=== PATIENT | male | born 1995 | race Asian ===

== ENCOUNTER 2016-10-19 21:32 | Emergency (ER) | payer OTHER ==
[~2016-10-19] VITALS: Ht 170.2 cm; Wt 88.0 kg
== END 2016-10-19 23:45 | disposition home or self-care (01) ==
LOC: ED 21:32
DX: K02.9 Dental caries, unspecified (principal)
CPT/HCPCS: 99282

== ENCOUNTER 2016-11-05 14:35 | Emergency (ER) | payer OTHER ==
[~2016-11-05] VITALS: Ht 162.6 cm; Wt 88.0 kg
== END 2016-11-05 15:00 | disposition home or self-care (01) ==
LOC: ED 14:35
DX: T81.30XA Disruption of wound, unspecified, initial encounter (principal)
CPT/HCPCS: 99282

== ENCOUNTER 2016-11-16 22:59 | Emergency (ER) | payer OTHER ==
[~2016-11-16] VITALS: Ht 170.2 cm; Wt 88.5 kg
== END 2016-11-17 01:12 | disposition home or self-care (01) ==
LOC: ED 22:59
DX: M79.1 Myalgia (principal); M54.5 Low back pain
CPT/HCPCS: 99282

== ENCOUNTER 2017-04-20 15:47 | Outpatient (CLI) | payer OTHER | END 2017-04-20 16:50 | disposition home or self-care (01) | LOC: RAD 15:47 | DX: M25.561 Pain in right knee (principal) ==

== ENCOUNTER 2017-05-04 23:26 | Emergency (ER) | payer OTHER ==
[~2017-05-04] VITALS: Ht 170.2 cm; Wt 88.0 kg
[2017-05-04] MEDS ORDERED: MELOXICAM15 MG PO (23:42)
== END 2017-05-05 00:17 | disposition home or self-care (01) ==
LOC: ED 23:26
DX: M25.561 Pain in right knee (principal)
CPT/HCPCS: 99281

== ENCOUNTER 2017-06-20 20:04 | Emergency (ER) | payer OTHER ==
[~2017-06-20] VITALS: Ht 170.2 cm; Wt 91.6 kg
[~2017-06-20 20:04] MED LIST: MELOXICAM15 MG PO
[2017-06-20] MEDS ORDERED: LISITAB PO (20:13)
== END 2017-06-20 21:15 | disposition home or self-care (01) ==
LOC: ED 20:04
DX: R51 Headache (principal); R10.84 Generalized abdominal pain
CPT/HCPCS: 99282

== ENCOUNTER 2017-08-05 20:18 | Emergency (ER) | payer OTHER ==
[~2017-08-05] VITALS: Ht 170.2 cm; Wt 88.5 kg
[~2017-08-05 20:18] MED LIST changes: +LISITAB PO
== END 2017-08-05 21:40 | disposition home or self-care (01) ==
LOC: ED 20:18
DX: M54.5 Low back pain (principal)
CPT/HCPCS: 96372; 99283; J1885

== ENCOUNTER 2017-11-15 19:27 | Emergency (ER) | payer OTHER ==
[~2017-11-15] VITALS: Ht 170.2 cm; Wt 91.6 kg
[2017-11-15 20:13] LABS: PLATELET COUNT 292 K/uL (142-355)
[2017-11-15 20:28] LABS: POTASSIUM 3.5 mmol/L (3.6-5.2)
[2017-11-15 23:14] VITALS: BP 133/81; TEMP 98.7
== END 2017-11-15 23:17 | disposition home or self-care (01) ==
LOC: ED 19:27
DX: K44.9 Diaphragmatic hernia without obstruction or gangrene (principal); R51 Headache; R10.84 Generalized abdominal pain
CPT/HCPCS: 36415; 80053; 82150; 83690; 85027; 96360; 96372; 99284; J1885; Q9963

== ENCOUNTER 2018-03-05 19:18 | Emergency (ER) | payer OTHER ==
[~2018-03-05] VITALS: Ht 170.2 cm; Wt 83.9 kg
[2018-03-05 19:55] VITALS: BP 134/74; TEMP 98.8
[2018-03-05 20:24] LABS: PLATELET COUNT 295 K/uL (142-355)
[2018-03-05 20:41] LABS: POTASSIUM 3.7 mmol/L (3.6-5.2); SODIUM 141 mmol/L (136-145)
== END 2018-03-05 22:02 | disposition home or self-care (01) ==
LOC: ED 19:18
DX: R45.851 Suicidal ideations (principal)
CPT/HCPCS: 36415; 80053; 80307; 80320; 80329; 81000; 83735; 84100; 85027; 93005; 99285

== ENCOUNTER 2018-05-11 20:51 | Emergency (ER) | payer OTHER ==
[~2018-05-11] VITALS: Ht 170.2 cm; Wt 83.9 kg
[2018-05-11 21:43] LABS: PLATELET COUNT 266 K/uL (142-355)
[2018-05-11 21:55] LABS: SODIUM 142 mmol/L (136-145)
[2018-05-11 22:39] VITALS: BP 142/76; TEMP 98.1
== END 2018-05-11 22:44 | disposition home or self-care (01) ==
LOC: ED 20:51
PROVIDERS: Emergency Medicine
DX: R07.89 Other chest pain (principal); I10 Essential (primary) hypertension
CPT/HCPCS: 36415; 80053; 80307; 82550; 82553; 84484; 85027; 93005; 99283

== ENCOUNTER 2018-05-18 21:50 | Emergency (ER) | payer OTHER ==
[~2018-05-18] VITALS: Ht 170.2 cm; Wt 83.9 kg
[2018-05-18 22:33] LABS: PLATELET COUNT 248 K/uL (142-355)
[2018-05-18 22:41] LABS: POTASSIUM 3.8 mmol/L (3.6-5.2)
[2018-05-19 02:09] VITALS: BP 140/87; TEMP 98.1
== END 2018-05-19 02:10 | disposition home or self-care (01) ==
LOC: ED 21:50
PROVIDERS: Emergency Medicine
DX: R10.84 Generalized abdominal pain (principal); K52.89 Other specified noninfective gastroenteritis and colitis
CPT/HCPCS: 36415; 80053; 85027; 96360; 99284; Q9963

== ENCOUNTER 2018-08-01 19:29 | Emergency (ER) | payer OTHER ==
[~2018-08-01] VITALS: Ht 170.2 cm; Wt 83.9 kg
[2018-08-01 19:43] VITALS: BP 145/80; TEMP 97.7
[2018-08-01 20:31] LABS: PLATELET COUNT 278 K/uL (142-355)
[2018-08-01 20:33] LABS: POTASSIUM 3.9 mmol/L (3.6-5.2)
== END 2018-08-01 21:44 | disposition home or self-care (01) ==
LOC: ED 19:29
DX: R10.84 Generalized abdominal pain (principal)
CPT/HCPCS: 36415; 74022; 80053; 81000; 82150; 83690; 85027; 99283

== ENCOUNTER 2018-08-20 12:37 | Emergency (ER) | payer OTHER ==
[~2018-08-20] VITALS: Ht 170.2 cm; Wt 83.9 kg
[2018-08-20 12:43] VITALS: BP 155/95; TEMP 100.6
[2018-08-20 13:37] LABS: PLATELET COUNT 256 K/uL (142-355)
[2018-08-20 13:50] LABS: POTASSIUM 4.2 mmol/L (3.6-5.2)
== END 2018-08-20 15:17 | disposition left against medical advice (07) ==
LOC: ED 12:37
PROVIDERS: Allergy & Immunology
DX: R10.84 Generalized abdominal pain (principal)
CPT/HCPCS: 36415; 80053; 81000; 82150; 85027; 99283

== ENCOUNTER 2018-08-21 21:28 | Emergency (ER) | payer OTHER ==
[~2018-08-21] VITALS: Ht 170.2 cm; Wt 88.5 kg
[2018-08-21 21:36] VITALS: BP 149/83; TEMP 99
== END 2018-08-21 22:32 | disposition home or self-care (01) ==
LOC: ED 21:28
DX: K58.9 Irritable bowel syndrome, unspecified (principal); K29.60 Other gastritis without bleeding
CPT/HCPCS: 99282; 99283

== ENCOUNTER 2018-08-26 19:06 | Emergency (ER) | payer OTHER ==
[~2018-08-26] VITALS: Ht 170.2 cm; Wt 88.5 kg
[2018-08-26 21:02] VITALS: BP 153/80; TEMP 98.5
== END 2018-08-26 21:02 | disposition home or self-care (01) ==
LOC: ED 19:06
DX: R10.13 Epigastric pain (principal)
CPT/HCPCS: 96372; 99283; J1885; J2060

== ENCOUNTER 2018-08-31 09:27 | Outpatient (CLI) | payer OTHER | END 2018-08-31 22:08 | disposition home or self-care (01) | LOC: US 09:27 | DX: R10.11 Right upper quadrant pain (principal) ==

== ENCOUNTER 2019-06-05 21:24 | Emergency (ER) | payer OTHER ==
[~2019-06-05] VITALS: Ht 170.2 cm; Wt 77.6 kg
[2019-06-05 22:15] LABS: PLATELET COUNT 236 K/uL (142-355)
[2019-06-05 22:31] LABS: POTASSIUM 5.1 mmol/L (3.6-5.2)
[2019-06-05 23:44] VITALS: BP 157/95; TEMP 97.8
== END 2019-06-05 23:46 | disposition home or self-care (01) ==
LOC: ED 21:24
PROVIDERS: Emergency Medicine Emergency Medical Services
DX: R10.84 Generalized abdominal pain (principal); T78.1XXA Other adverse food reactions, not elsewhere classified, initial encounter
CPT/HCPCS: 36415; 80053; 81000; 83690; 85027; 96360; 96375; 99284; J1885

== ENCOUNTER 2019-06-10 22:47 | Emergency (ER) | payer OTHER ==
[~2019-06-10] VITALS: Ht 170.2 cm; Wt 82.1 kg
[2019-06-10 22:50] VITALS: BP 156/94; TEMP 98.4
== END 2019-06-10 22:55 | disposition home or self-care (01) ==
LOC: ED 22:47
DX: Z01.30 Encounter for examination of blood pressure without abnormal findings (principal)
CPT/HCPCS: 99281

== ENCOUNTER 2019-06-22 18:46 | Emergency (ER) | payer OTHER ==
[~2019-06-22] VITALS: Ht 170.2 cm; Wt 79.4 kg
[2019-06-22 20:39] LABS: PLATELET COUNT 247 K/uL (142-355)
[2019-06-22 20:52] LABS: POTASSIUM 4.2 mmol/L (3.6-5.2); SODIUM 140 mmol/L (136-145)
[2019-06-22 22:06] VITALS: BP 164/96; TEMP 98.1
== END 2019-06-22 22:07 | disposition home or self-care (01) ==
LOC: ED 18:46
PROVIDERS: Emergency Medicine
DX: I10 Essential (primary) hypertension (principal); R51 Headache; F17.210 Nicotine dependence, cigarettes, uncomplicated
CPT/HCPCS: 36415; 80053; 83735; 84484; 85027; 93005; 99283

== ENCOUNTER 2019-09-12 17:09 | Emergency (ER) | payer OTHER ==
[~2019-09-12] VITALS: Ht 167.6 cm; Wt 81.6 kg
[2019-09-12 21:25] VITALS: BP 136/84; TEMP 98.1
== END 2019-09-12 21:36 | disposition home or self-care (01) ==
LOC: ED 17:09
DX: J06.9 Acute upper respiratory infection, unspecified (principal); R51 Headache; F17.210 Nicotine dependence, cigarettes, uncomplicated
CPT/HCPCS: 87502; 87651; 99283

== ENCOUNTER 2019-10-20 11:45 | Emergency (ER) | payer OTHER ==
[~2019-10-20] VITALS: Ht 167.6 cm; Wt 81.6 kg
[2019-10-20 12:03] VITALS: BP 145/99; TEMP 97.9
== END 2019-10-20 12:37 | disposition home or self-care (01) ==
LOC: ED 11:45
DX: R10.9 Unspecified abdominal pain (principal)
CPT/HCPCS: 99281

== ENCOUNTER 2019-10-25 19:39 | Emergency (ER) | payer OTHER ==
[~2019-10-25] VITALS: Ht 170.2 cm; Wt 88.0 kg
[2019-10-25 20:23] LABS: PLATELET COUNT 253 K/uL (142-355)
[2019-10-25 20:29] LABS: POTASSIUM 4.4 mmol/L (3.6-5.2)
[2019-10-26 00:06] VITALS: BP 148/73; TEMP 98.2
== END 2019-10-26 00:06 | disposition home or self-care (01) ==
LOC: ED 19:39
PROVIDERS: Emergency Medicine
DX: R10.84 Generalized abdominal pain (principal)
CPT/HCPCS: 80053; 81000; 82150; 83690; 85027; 99283; Q9963

== ENCOUNTER 2020-04-09 20:21 | Emergency (ER) | payer OTHER ==
[~2020-04-09] VITALS: Ht 170.2 cm; Wt 84.4 kg
[2020-04-09 20:28] VITALS: BP 151/81; TEMP 98.9
[2020-04-09 21:33] LABS: PLATELET COUNT 244 K/uL (142-355)
[2020-04-09 21:44] LABS: POTASSIUM 4.2 mmol/L (3.6-5.2); SODIUM 142 mmol/L (136-145)
== END 2020-04-10 08:22 | disposition other institution (70) ==
LOC: ED 20:21
PROVIDERS: Emergency Medicine Emergency Medical Services
DX: R45.851 Suicidal ideations (principal); F43.22 Adjustment disorder with anxiety; Z03.818 Encounter for observation for suspected exposure to other biological agents ruled out
CPT/HCPCS: 36415; 80053; 80307; 80320; 80329; 81000; 85027; 87635; 93005; 99285; U0003

== ENCOUNTER 2020-06-16 21:41 | Emergency (ER) | payer OTHER ==
[~2020-06-16] VITALS: Ht 170.2 cm; Wt 84.4 kg
[2020-06-16 23:17] LABS: PLATELET COUNT 216 K/uL (142-355)
[2020-06-16 23:27] LABS: POTASSIUM 4.7 mmol/L (3.6-5.2)
[2020-06-16 23:45] LABS: PARTIAL THROMBOPLASTIN TIME 24.9 SECONDS (24.5-33.6)
[2020-06-16 23:54] VITALS: BP 124/69; TEMP 98.8
== END 2020-06-16 23:54 | disposition home or self-care (01) ==
LOC: ED 21:41
PROVIDERS: Hospitalist
DX: N30.81 Other cystitis with hematuria (principal); N34.2 Other urethritis
CPT/HCPCS: 36415; 80048; 81000; 85027; 85610; 85730; 96372; 99283; J0696

== ENCOUNTER 2021-11-14 22:47 | Emergency (ER) | payer OTHER ==
[~2021-11-14] VITALS: Ht 170.2 cm; Wt 80.7 kg
[2021-11-15 00:31] VITALS: BP 146/88; TEMP 97.8
== END 2021-11-15 00:31 | disposition home or self-care (01) ==
LOC: ED 22:47
DX: S00.83XA Contusion of other part of head, initial encounter (principal); W22.8XXA Striking against or struck by other objects, initial encounter; Y92.511 Restaurant or cafe as the place of occurrence of the external cause
CPT/HCPCS: 96372; 99283; J1885

== ENCOUNTER 2021-11-15 17:54 | Emergency (ER) | payer OTHER ==
[~2021-11-15] VITALS: Ht 170.2 cm; Wt 80.7 kg
[2021-11-15 21:45] VITALS: BP 145/77; TEMP 98.7
== END 2021-11-15 21:45 | disposition home or self-care (01) ==
LOC: ED 17:54
DX: S00.83XD Contusion of other part of head, subsequent encounter (principal); I10 Essential (primary) hypertension; W22.8XXD Striking against or struck by other objects, subsequent encounter; Y92.511 Restaurant or cafe as the place of occurrence of the external cause; F17.290 Nicotine dependence, other tobacco product, uncomplicated
CPT/HCPCS: 96372; 99283; J1200; J1885

== ENCOUNTER 2022-01-25 23:22 | Emergency (ER) | payer OTHER ==
[~2022-01-25] VITALS: Ht 170.2 cm; Wt 78.0 kg
[2022-01-26 00:30] LABS: POTASSIUM 3.9 mmol/L (3.6-5.2)
[2022-01-26 00:48] LABS: PLATELET COUNT 241 K/uL (142-355)
[2022-01-26 02:10] VITALS: BP 145/74; TEMP 97.3
== END 2022-01-26 02:15 | disposition home or self-care (01) ==
LOC: ED 23:22
PROVIDERS: Hospitalist
DX: K52.89 Other specified noninfective gastroenteritis and colitis (principal); R11.2 Nausea with vomiting, unspecified
CPT/HCPCS: 36415; 80053; 80307; 80320; 81000; 83690; 85027; 96360; 96365; 96375; 99284; J0696; J2405

== ENCOUNTER 2022-01-31 12:40 | Emergency (ER) | payer OTHER ==
[~2022-01-31] VITALS: Ht 170.2 cm; Wt 78.0 kg
[2022-01-31 12:49] VITALS: BP 146/99; TEMP 99
[2022-01-31 13:23] LABS: POTASSIUM 4.5 mmol/L (3.6-5.2)
[2022-01-31 13:27] LABS: PLATELET COUNT 247 K/uL (142-355)
== END 2022-01-31 14:04 | disposition left against medical advice (07) ==
LOC: ED 12:40
PROVIDERS: Emergency Medicine
DX: R10.84 Generalized abdominal pain (principal); Z87.898 Personal history of other specified conditions; Z53.29 Procedure and treatment not carried out because of patient's decision for other reasons
CPT/HCPCS: 36415; 80053; 80320; 82150; 83690; 85027; 99283

== ENCOUNTER 2022-03-07 01:29 | Emergency (ER) | payer OTHER ==
[~2022-03-07] VITALS: Ht 170.2 cm; Wt 78.0 kg
[2022-03-07 02:03] LABS: PLATELET COUNT 257 K/uL (142-355)
[2022-03-07 02:12] LABS: POTASSIUM 3.8 mmol/L (3.6-5.2)
[2022-03-07 13:20] VITALS: BP 144/84; TEMP 97.2
== END 2022-03-07 13:20 | disposition other institution (70) ==
LOC: ED 01:29
PROVIDERS: Hospitalist
DX: F32.89 Other specified depressive episodes (principal); F41.8 Other specified anxiety disorders; R45.851 Suicidal ideations; Z11.52 Encounter for screening for COVID-19
CPT/HCPCS: 36415; 80053; 80143; 80179; 80307; 80320; 81002; 85027; 87635; 93005; 99285; U0003

== ENCOUNTER 2022-06-17 18:12 | Emergency (ER) | payer OTHER ==
[~2022-06-17] VITALS: Ht 170.2 cm; Wt 79.4 kg
[2022-06-17 18:20] VITALS: BP 147/84; TEMP 99.4
== END 2022-06-17 19:02 | disposition home or self-care (01) ==
LOC: ED 18:12
DX: J32.8 Other chronic sinusitis (principal); B34.9 Viral infection, unspecified; F17.210 Nicotine dependence, cigarettes, uncomplicated
CPT/HCPCS: 99282

== ENCOUNTER 2022-06-19 00:48 | Emergency (ER) | payer OTHER ==
[~2022-06-19] VITALS: Ht 170.2 cm; Wt 79.4 kg
[2022-06-19 02:10] VITALS: BP 138/88; TEMP 98.3
== END 2022-06-19 02:10 | disposition home or self-care (01) ==
LOC: ED 00:48
DX: J32.8 Other chronic sinusitis (principal); R05.8 Other specified cough; R51.9 Headache, unspecified; F17.210 Nicotine dependence, cigarettes, uncomplicated
CPT/HCPCS: 99282

== ENCOUNTER 2022-07-27 10:03 | Emergency (ER) | payer OTHER ==
[~2022-07-27] VITALS: Ht 170.2 cm; Wt 79.4 kg
[2022-07-27 10:07] VITALS: TEMP 99.1
[2022-07-27 10:40] LABS: PLATELET COUNT 262 K/uL (142-355)
[2022-07-27 10:47] LABS: POTASSIUM 4.5 mmol/L (3.6-5.2)
[2022-07-27 12:04] VITALS: BP 131/74
== END 2022-07-27 12:11 | disposition home or self-care (01) ==
LOC: ED 10:03
PROVIDERS: Emergency Medicine Emergency Medical Services
DX: R51.9 Headache, unspecified (principal); J34.1 Cyst and mucocele of nose and nasal sinus; Z91.14 Patient's other noncompliance with medication regimen; Z20.822 Contact with and (suspected) exposure to COVID-19; F17.210 Nicotine dependence, cigarettes, uncomplicated
CPT/HCPCS: 80048; 82150; 83690; 85027; 87502; 87635; 96360; 99284; U0003

== ENCOUNTER 2022-07-28 18:51 | Emergency (ER) | payer OTHER ==
[~2022-07-28] VITALS: Ht 170.2 cm; Wt 79.4 kg
[2022-07-28 21:10] VITALS: BP 163/88; TEMP 98.8
== END 2022-07-28 21:10 | disposition home or self-care (01) ==
LOC: ED 18:51
DX: R10.84 Generalized abdominal pain (principal); I10 Essential (primary) hypertension; F17.210 Nicotine dependence, cigarettes, uncomplicated
CPT/HCPCS: 36415; 80307; 81002; 84484; 93005; 96374; 96375; 99284; J0360; J1885; J2405

== ENCOUNTER 2022-08-05 20:25 | Emergency (ER) | payer OTHER | END 2022-08-05 22:26 | disposition home or self-care (01) | LOC: ED 20:25 | DX: Z53.21 Procedure and treatment not carried out due to patient leaving prior to being seen by health care provider (principal) | CPT/HCPCS: 99281 ==